=== PATIENT | male | born 1950 | race Caucasian/White ===

== ENCOUNTER 2016-07-04 22:49 | Inpatient (IN) | payer MEDICARE ==
--- NOTE | ~2016-07-04 | CT4 ---
[facility] A Service of [facility] RADIOLOGY TEXT RESULTS PATIENT: RICKY HSIEH LOCATION: C2A 227-01 : 51 UNIT #: [id number] AGE: [address]: Shamika Pfeiffer MD SEX: M ORDER DR: [id number] [facility] [address] [place], [place] [address] [id number] I MR#: [id number] Acc #: [id number] NAME: RICKY HSIEH : 1950 SEX: M STUDY DATE/TIME: 07/04/2016 22:15 UNIT: C2A ROOM: 227 STUDY DESCRIPTION: CT Abd and Pelv Wo Cont Attending Physician: Shamika Pfeiffer M.D. Ordering Physician: Elder Mandel M.D. Primary Care Physician: No Primary Care Physician MEDICAL IMAGING REPORT This report is preliminary unless electronic signature is present EXAM CT abdomen and pelvis, 07/04. INDICATIONS Abdominal pain and flank pain with hematuria. Dysuria that started today. History of cirrhosis. TECHNIQUE Axial images were obtained through the abdomen and pelvis without contrast. Multiplanar reformats were obtained. This CT exam was performed with one or more of the following radiation dose reduction techniques: automatic exposure control, adjustment of mA and/or kV according to patient size, and iterative reconstruction. COMPARISON Comparison made with 06/12/2013. FINDINGS ABDOMEN: An interval development of a large right pleural effusion and a cludd-aa-xszvzjmf left pleural effusion. There is complete atelectasis of the right lower lobe with partial right middle and left lower lobe atelectasis as well. Liver has a cirrhotic morphology. Spleen is mildly enlarged with a pole to pole length of 13.2 cm. There is a small volume of ascites, which is new. Multiple gallstones are seen within the gallbladder. There is also a small gallstone in the distal common bile duct. Common bile duct measures about 14 mm in size today where it was previously normal. Consider ERCP for followup. There is atherosclerotic disease, but no aortic aneurysm. No renal or ureteral stones are seen and there is no hydronephrosis. There is a stable cyst along the medial border of the right kidney. GI tract evaluation is limited without oral contrast. Mildly distended small bowel loops probably reflect a mild generalized ileus. [facility]. [facility] A Service of [facility] RADIOLOGY TEXT RESULTS PATIENT: RICKY HSIEH LOCATION: A 227-01 : 51 UNIT #: [id number] AGE: [address]: Shamika Pfeiffer MD SEX: M ORDER DR: PELVIS: Urinary bladder is grossly normal. There are no lower ureteral stones. There is a moderate volume of free fluid. Moderate stool volume noted in the rectal vault. Remainder of the GI tract including the appendix is within normal limits. There is degenerative disease in the lumbar spine. IMPRESSION 1. New large right pleural effusion with a nvbnr-lr-lojqmlfj left pleural effusion. There is complete right lower lobe atelectasis with partial atelectasis of the right middle and left lower lobes. 2. Abmmt-sn-uwojzpix volume of ascites in the abdomen and pelvis, which is also new. 3. Cirrhosis and portal hypertension with mild splenomegaly. 4. Gallstones in the gallbladder. Additionally, there is a small gallstone in the distal common bile duct with dilatation of the common bile duct to about 14 mm. This is a new finding. Consider ERCP for followup. 5. Ileus pattern in the small bowel. No definite bowel obstruction. The appendix is normal. 6. No renal or ureteral stones. No hydronephrosis. Dictated by... Mat Isaac Jr., M.D. THIS IS AN ELECTRONICALLY VERIFIED REPORT Mat Isaac Jr., M.D. at 07/05/2016 4:23 PM CHRISTY/denice TD: 07/05/2016 12:19 JOB #: [id number] MEDICAL IMAGING REPORT Page 1 of 1 COPY
--- NOTE | ~2016-07-04 | CO ---
Unit #: [id number] #: [id number] Patient: RICKY HSIEH [id number] [address] [address] [id number] I MR#: [id number] NAME: RICKY HSIEH ROOM: 227 Age: 65 Sex: M Admission Date: 07/05/2016 : 1950 Attending Physician: Shamika Pfeiffer M.D. CONSULTATION REPORT REASON FOR CONSULTATION Abdominal pain and common bile duct stones. HISTORY OF PRESENTING ILLNESS The patient states he was in his usual state health until 4 days ago where he began to experience abdominal pain, radiating to side with associated dark urine, nausea, and vomiting. He does have chronic shortness of breath. However states it has been worse lately. Workup in the ER showed a CT scan with known cirrhosis, portal hypertension, moderate ascites, gallstones, as well as a small stone in the distal common bile duct with dilation of the common bile duct as well as a right large pleural effusion. PAST MEDICAL HISTORY Alcohol-induced cirrhosis, COPD, previous CVA with some left-sided weakness, coronary artery disease. ALLERGIES None known. HOME MEDICATIONS Inhaled bronchodilators, spironolactone, Coreg, Lasix. FAMILY HISTORY Reviewed and noncontributory. SOCIAL HISTORY The patient lives with his grandson. He was drinking a case of beer daily until about 3 to 4 days ago where he stopped drinking because he was not feeling well. He also smokes about a pack of cigarettes a day and stopped smoking at the same time. REVIEW OF SYSTEMS A complete 10-point review of systems was completed and negative except as mentioned in the HPI. PHYSICAL EXAMINATION GENERAL: The patient is a 65-year-old male, in no acute distress. VITAL SIGNS: Temperature is 97.8, pulse is 78, respirations 16, blood pressure is 98/54. HEENT: PERRLA. NECK: Supple. CARDIAC: S1, S2. LUNGS: Clear. Unit #: [id number] #: [id number] Patient: RICKY HSIEH ABDOMEN: Soft, rounded, mild right upper quadrant epigastric tenderness. NEUROLOGIC: The patient is alert and awake. DIAGNOSTIC STUDIES IMAGING STUDIES: Again a CT of abdomen and pelvis was completed showing a large right pleural effusion as well as cirrhosis and gallstones in the gallbladder as well as a small stone in the distal common bile duct with common bile duct dilation to 14 mm. LABORATORY RESULTS: INR is 1.4. BUN and creatinine are 12 and 1.0, sodium is 133, bilirubin total is 3.9, AST and ALT are 49 and 19 respectively, alkaline phosphatase is 170. Lipase is 110. White count is 9.8, hemoglobin is 12.0, hematocrit 35.7, and platelets are 145. ASSESSMENT AND PLAN 1. Obstructive jaundice with small stone in the common bile duct. We will plan an endoscopic retrograde cholangiopancreatography in the morning as the patient is medically stable and okay with primary team. We will begin Unasyn for broad-spectrum antibiotic coverage. Continue adequate supportive care for now. 2. Alcohol-induced cirrhosis with ascites. We will order a large volume paracentesis and send fluids for cell count and order albumin. Continue diuretics for now. 3. Alcohol abuse. 4. Chronic obstructive pulmonary disease. 5. Large right pleural effusion. Thoracentesis has already been ordered. Thank you for this interesting consult. We will continue to follow along. Dictated by... Ngozi BeckerPAnny. for Darryl Belle/antoine TD: 07/06/2016 03:06 JOB #: [id number] CONSULTATION REPORT Page 1 of 1 X X CONSULTATION REPORT
--- NOTE | ~2016-07-04 | CO ---
Unit #: [id number] #: [id number] Patient: RICKY HSIEH [id number] [address] [address] [id number] I MR#: [id number] NAME: RICKY HSIEH ROOM: 227 Age: 65 Sex: M Admission Date: 07/05/2016 : 1950 Attending Physician: Shamika Pfeiffer M.D. Primary Care Physician: No Primary Care Physician CONSULTATION REPORT REASON FOR CONSULTATION COPD, pleural effusion. CHIEF COMPLAINT 65-year-old male with a past medical history of alcoholic cirrhosis, COPD, presented with a complaint of abdominal pain and also has been complaining of cough, shortness of breath, increasing sputum production for the last few days, admitted with complaint of common bile duct stone with jaundice. I am seeing the patient at the bedside. He has a large right sided lesion. He has been complaining of increasing shortness of breath. Denies any nausea, vomiting, diarrhea, on 3 L oxygen. REVIEW OF SYSTEMS Positive for pallor. No edema, no cyanosis, no jaundice. PHYSICAL EXAMINATION VITAL SIGNS: Temperature 98, pulse 87, respirations 12, blood pressure 130/70. NEUROLOGICAL: Awake, alert, oriented. No neuro deficit. HEENT: PERRLA. NECK: Supple. No JVD. CHEST: Bilateral air entry, bilateral mild rhonchi. GI: Nontender, soft. Bowel sounds positive. EXTREMITIES: No edema. SKIN: No rashes, no ulcers. LYMPHATIC: No lymphadenopathy. DIAGNOSTIC STUDIES Labs and imaging have been reviewed. PAST MEDICAL HISTORY Significant for: 1. Alcoholic cirrhosis. 2. COPD. 3. Coronary artery disease. 4. Skin cancer. ALLERGIES No known drug allergies. HOME MEDICATIONS 1. Inhaled bronchodilators. 2. Spironolactone. 3. Coreg. Unit #: [id number] #: [id number] Patient: RICKY HSIEH 4. Lasix. 5. PreserVision. FAMILY HISTORY Negative for liver disease. SOCIAL HISTORY One pack smoker. Drinks regularly. ASSESSMENT AND PLAN 1. Chronic obstructive pulmonary disease with exacerbation of right sided pleural effusion. 2. Bile duct stone. 3. Coronary artery disease. Plan is to do a thoracentesis. Continue IV fluids. Continue IV Zosyn. Add on IV steroids after the (1) . We will continue to monitor the patient. Thank you very much for your kind consideration to involve us in taking care of this patient. Dictated by... Darryl Potts TD: 07/06/2016 06:41 JOB #: [id number] CONSULTATION REPORT Page 1 of 1 X Justin Lozano MD CONSULTATION REPORT
--- NOTE | ~2016-07-04 | HP ---
Unit #: [id number] #: [id number] Patient: RICKY HSIEH [id number] [address] [address] [id number] I MR#: [id number] NAME: RICKY HSIEH ROOM: 227 Age: 65 Sex: M Admission Date: 07/05/2016 : 1950 Attending Physician: Priyanka Mix M.D. Primary Care Physician: No Primary Care Physician HISTORY AND PHYSICAL CHIEF COMPLAINT Abdominal pain with common bile duct stone. HISTORY This 65-year-old male with alcohol induced cirrhosis, COPD, is admitted for abdominal pain. The patient was in his usual state of health until four days ago when he began to experience mid abdominal pain radiating to his sides, now associated with dark urine, nausea, vomiting and chills. Notes abdominal bloating. He has chronic shortness of breath but this is worse when he lays on his left side. He presents to this emergency department where he is jaundice. CT scan performed shows his known cirrhosis with portal hypertension, along with small to moderate ascites, gallstones, and small gallstone in the distal common bile duct with dilatation of the common bile duct. Also noted is a large right pleural effusion. In the ER he was given morphine and Zofran and referred for admission. He states that he last drank alcohol three days ago, is not undergoing withdrawal. PAST MEDICAL HISTORY 1. Alcohol induced cirrhosis. 2. COPD. 3. Previous CVA and TIAs with some left-sided weakness. 4. CAD with reported previous [place]. 5. Skin cancer removed. ALLERGIES No known drug allergies. HOME MEDICATIONS Inhaled bronchodilators; spironolactone 50 mg daily; Coreg 3.125 mg daily; Lasix 20 mg daily, PreserVision daily. FAMILY HISTORY Negative for liver disease. SOCIAL HISTORY The patient lives with his grandson. He was drinking intermittently 15-20 beers a day until three to four days ago when he stopped drinking. Was smoking 1/2 pack per day of tobacco, stopped smoking last week. REVIEW OF SYSTEMS Notable for abdominal pain, dark urine, nausea, vomiting, chills, cirrhosis, alcohol abuse, tobacco abuse, COPD, chronic shortness of breath Unit #: [id number] #: [id number] Patient: RICKY HSIEH worse when lying on his left side, abdominal bloating, CVA, TIA, CAD, skin cancer and some cancer from the left shoulder removed. All other systems were reviewed and are negative. PHYSICAL EXAMINATION GENERAL: 65-year-old male currently in no acute distress. VITAL SIGNS: Temperature 98.5, pulse 81, respirations 26, blood pressure 116/69, O2 saturation is 95% on room air. HEENT: Eyes - PERRLA. Extraocular muscles are intact. Pharynx is benign. NECK: Supple without adenopathy or thyromegaly. CHEST: Reveals diminished breath sounds on the right. CARDIAC: Normal S1 and S2 without S3, S4 or murmur. ABDOMEN: Bowel sounds are somewhat hyperactive. Mild hepatosplenomegaly on exam with tenderness mainly in the epigastric region and right upper quadrant. No rebound or guarding. EXTREMITIES: With mild edema. NEUROLOGIC: Patient is awake, alert, and oriented. Cranial nerves are intact. Equal strength throughout. DIAGNOSTIC STUDIES ADMISSION LABS: Hematocrit is 35.3, normal white count and platelet count, MCV is 104. SMA 12 - glucose 116, sodium 132, potassium 3.4, calcium 8, albumin 1.9, bilirubin 3.3, AST is 52, alk phos 184, lipase 110. Urinalysis - trace leukocyte esterase without significant white or red cells. IMAGING STUDIES: CT scan shows large right pleural effusion, small left pleural effusion, small to moderate ascites, cirrhosis with portal hypertension and mild splenomegaly. Gallstones noted. Small gallstone in the distal common bile duct with dilation of the common bile duct. Ileus. ASSESSMENT 1. Common bile duct stone with jaundice. 2. Cirrhosis with portal hypertension, secondary to previous alcohol abuse. 3. Large right pleural effusion likely on the basis of cirrhosis. 4. COPD. 5. CAD. 6. Prior CVAs. PLANS 1. IV fluids, Zosyn, consult GI. Will also check a hepatitis profile in the morning. [facility] to also see given gallstones. 2. Patient will need right thoracentesis with analysis of fluid after his likely ERCP. 3. Vitamins. 4. SCDs and H2 blockers. 5. Old records. Dictated by Darryl Bernard/heath TD: 07/05/2016 05:37 Unit #: [id number] #: [id number] Patient: WHITE,RICKY JOB #: [id number] CC: Dr. Rucker HISTORY AND PHYSICAL Page 1 of 1 X Priyanka Mix MD X HISTORY AND PHYSICAL
--- NOTE | ~2016-07-04 | XA170 ---
[facility] A Service [facility] RADIOLOGY TEXT RESULTS PATIENT: RICKY HSIEH LOCATION: [facility] : 51 UNIT #: [id number] AGE: [address]: Shamika Pfeiffer MD SEX: M ORDER DR: [id number] [address] [place], [place] [address] [id number] I MR#: [id number] Acc #: [id number] NAME: RICKY HSIEH : 1950 SEX: M STUDY DATE/TIME: 07/05/2016 9:04 UNIT: A ROOM: [facility] STUDY DESCRIPTION: XA Paracentesis W Image Attending Physician: Shamika Pfeiffer M.D. Ordering Physician: Dwight Lyons M.D. Primary Care Physician: Primary Care Physician No MEDICAL IMAGING REPORT This report is preliminary unless electronic signature is present EXAM Attempted paracentesis INDICATION 65-year-old male with ascites. TECHNIQUE Risks, benefits and alternatives of the procedure were discussed with the patient. Informed consent was obtained. In the procedure room, a time-out was performed confirming correct patient and procedure. All elements of maximum sterile barrier technique utilized according to guidelines appropriate for the procedure. FINDINGS Ultrasound demonstrated a scant amount of fluid in the right lower quadrant. I did attempt to get a sample but I was unable to obtain a sample. IMPRESSION Attempted paracentesis but I was unable to get a sample due to a scant amount of fluid. Dictated by... Gilbert Figueroa M.D. THIS IS AN ELECTRONICALLY VERIFIED REPORT Gilbert Figueroa M.D. at 07/06/2016 11:32 AM ANA LILIA/saturnino TD: 07/06/2016 07:27 JOB #: [id number] [facility] A [facility] RADIOLOGY TEXT RESULTS PATIENT: RICKY HSIEH LOCATION: [facility] : 51 UNIT #: [id number] AGE: [address]: Shamika Pfeiffer MD SEX: M ORDER DR: MEDICAL IMAGING REPORT Page 1 of 1 COPY
--- NOTE | ~2016-07-04 | CO ---
Unit #: [id number] #: [id number] Patient: RICKY HSIEH [id number] [address] [address] [id number] I MR#: [id number] NAME: RICKY HSIEH ROOM: 227 Age: 65 Sex: M Admission Date: 07/05/2016 : 1950 Attending Physician: Shamika Pfeiffer M.D. Consultation Date: 07/05/2016 CONSULTATION REPORT HISTORY OF PRESENT ILLNESS A 65-year-old gentleman with a history of alcohol-induced cirrhosis and portal hypertension, who presents with nausea, vomiting, abdominal distention, and shortness of air. In the emergency room, a CT scan was obtained, it was consistent with obstructive jaundice from a common bile duct stone with associated ascites and a large right pleural effusion. The patient has been admitted and GI Medicine has been consulted for ERCP. PAST MEDICAL HISTORY Alcohol-induced cirrhosis with resultant portal hypertension, COPD, history of stroke, TIAs, coronary artery disease with a previous [place], previous skin cancer removal. ALLERGIES No allergies to medication. MEDICATIONS Include spironolactone, Coreg, Lasix, PreserVision, and he reportedly had some inhalers. FAMILY HISTORY He is unaware of any chronic inherited diseases. SOCIAL HISTORY Lives with the family. He continues to drink and the last time he drank was about 3 days ago. He is a smoker. Denies recreational drugs. REVIEW OF SYSTEMS Complains of nausea and vomiting, but no hematemesis, hematochezia, or melena. No fever, but he has complained of chills. PHYSICAL EXAMINATION VITAL SIGNS: Temperature is 97.9, pulse 73, respirations 20, blood pressure 121/60. GENERAL: He is awake, alert. He is oriented, but has some slowness to his responses. HEENT: Scleral icterus. CARDIAC: Regular rhythm. LUNGS: Decreased breath sounds on the right, but no wheezing. ABDOMEN: Distended and soft. He guards throughout. There is no localized tenderness and no rebound. I cannot appreciate a mass. EXTREMITIES: No edema. NEUROLOGIC: He is grossly intact. Unit #: [id number] #: [id number] Patient: RICKY HSIEH DIAGNOSTIC STUDIES LABORATORY RESULTS: His comprehensive metabolic panel, his potassium is 3.4, his albumin is 1.9, his total bilirubin is 3.3. Lipase is 110. White count 9900, hemoglobin 11.9, platelets 143,000. IMAGING STUDIES: CT scan as discussed. ASSESSMENT AND PLAN 1. Obstructive jaundice from a common bile duct stone. The patient will need endoscopic retrograde cholangiopancreatography with stone removal and stent placement. GI Medicine has already been consulted. 2. Large right pleural effusion and shortness of breath. We will order a thoracentesis with Interventional Radiology and ask Pulmonary Medicine to follow up the patient in case he needs to go to Surgery. 3. History of myocardial infarction, so EKG has been ordered. 4. Portal hypertension with cirrhosis and ascites. At this time, I discussed with the patient him undergoing endoscopic retrograde cholangiopancreatography to clear his duct and we will evaluate him further to see if he is a surgical candidate. 5. Alcohol withdrawal protocol has been ordered. 6. Potassium replacement has been ordered. 7. Thoracentesis will be ordered to improve his shortness of air. Pulmonary Medicine has been consulted. Dictated by... Mat Cramer M.D. DELFINA/antoine TD: 07/05/2016 07:14 JOB #: [id number] CONSULTATION REPORT Page 1 of 1 X Mat Cramer MD CONSULTATION REPORT
--- NOTE | ~2016-07-04 | XA203 ---
[facility] A Service of [facility] RADIOLOGY TEXT RESULTS PATIENT: RICKY HSIEH LOCATION: A 227-01 : [birth year] UNIT #: [id number] AGE: [address]: Shamika Pfeiffer MD SEX: M ORDER DR: [id number] [place] [address] [facility]. [place], [place] [address] [id number] MR#: [id number] Acc #: [id number] NAME: RICKY HSIEH : 1950 SEX: M STUDY DATE/TIME: 07/05/2016 9:04 UNIT: A ROOM: [facility] STUDY DESCRIPTION: XA Thoracentesis Attending Physician: Shamika Pfeiffer M.D. Ordering Physician: Mat Cramer M.D. Primary Care Physician: Primary Care Physician No MEDICAL IMAGING REPORT This report is preliminary unless electronic signature is present EXAM Ultrasound-guided right thoracentesis. INDICATIONS 65-year male with right pleural effusion. The risks, benefits and alternatives of the procedure were discussed with the patient and informed consent was obtained. In the procedure room a timeout was performed confirming correct patient and procedure. All elements of maximum sterile barrier technique utilized according to guidelines appropriate for the procedure. TECHNIQUE/FINDINGS Ultrasound of the right posterior hemithorax was performed demonstrating a large right pleural effusion. The overlying skin was prepped and draped in usual sterile fashion. 1% lidocaine utilized to anesthetize the skin and underlying subcutaneous tissues. Next under ultrasound guidance 5-Portuguese Yueh catheter inserted into the pleural space on the right and 1300 mL of fluid was removed and sample was sent to the lab. The needle was removed and a sterile dressing was applied. No immediate complications. IMPRESSION Successful ultrasound-guided right thoracentesis. Dictated by... Gilbert Figueroa M.D. THIS IS AN ELECTRONICALLY VERIFIED REPORT Gilbert Figueroa M.D. at 07/06/2016 11:32 AM Gene TD: 07/06/2016 07:26 JOB #: [id number] [facility] A Service of [facility] RADIOLOGY TEXT RESULTS PATIENT: RICKY HSIEH LOCATION: [facility] 227-01 : [birth year] UNIT #: [id number] AGE: [address]: Shamika Pfeiffer MD SEX: M ORDER DR: MEDICAL IMAGING REPORT Page 1 of 1 COPY
--- NOTE | ~2016-07-04 | OR ---
Unit #: [id number] #: [id number] Patient: RICKY HSIEH [id number] [address] [place], [place] [address] [id number] Sumi MR#: [id number] NAME: RICKY HSIEH ROOM: 227 Date of Procedure: 07/06/2016 Admission Date: 07/05/2016 Surgeon: Dwight Lyons M.D. : 1950 Attending Physician: Shamika Pfeiffer M.D. OPERATIVE REPORT PROCEDURE PERFORMED Esophagogastroduodenoscopy to descending duodenum, endoscopic retrograde cholangiopancreatography aborted. INDICATIONS FOR PROCEDURE The patient with a CT scan showing dilated duct and possible common bile duct stone. He also has a history of liver cirrhosis. LFTs seems to be worsening secondary to obstructive element. MEDICATIONS Monitored anesthesia. POSTOPERATIVE FINDINGS 1. EGD exam shows evidence of mild esophagitis along with hiatal hernia and early esophageal stricture. 2. Diffuse gastropathy. 3. Normal duodenum and distal duodenum. 4. ERCP was attempted. Cannulation was very difficult as the ampulla was behind duodenal fold. After repeated attempt, I was not able to get into the duct. PLAN Continue with his current treatment including supportive treatment and broad spectrum antibiotics. We will however repeat attempted ERCP by Dr. Samuel Arnold. DESCRIPTION OF PROCEDURE The patient was explained of the procedure, risks, and benefits along with the risks and benefits of anesthesia. He was brought to the endoscopy room. Propofol anesthesia was given and laid in the prone position. EGD was done first. Scope was passed down the mouth into the esophagus, stomach, duodenum, and distal duodenum. Findings as described. No biopsies were taken. Gently, the scope was pulled out. At this point, we got the ERCP side-viewing scope, which was passed down the mouth into the esophagus, stomach, and duodenum. Ampulla was visualized. It was very difficult to visualize it because it was right behind the big folds. After several attempts of cannulation, I elected to abort the procedure. Cannulation was unsuccessful. Gently, the scope was pulled out. Stomach was decompressed. He tolerated it well. No major complications were seen. Dictated by... Unit #: [id number] #: [id number] Patient: RICKY HSIEH Darryl Belle/antoine TD: 07/06/2016 23:10 JOB #: [id number] OPERATIVE REPORT Page 1 of 1 X Dwight Lyons MD X PROCEDURE OPERATIVE NOTE
--- NOTE | ~2016-07-04 | EKG ---
PATIENT: RICKY HSIEH UNIT #: [id number] Ventricular Rate: 75 BPM Atrial Rate: 75 BPM P-R Interval: 132 ms QRS Duration: 96 ms Q-T Interval: 450 ms QTC Calculation(Bezet): 502 ms P Cantrall: 29 degrees Calculated R Cantrall: 29 degrees Calculated T Cantrall: 56 degrees Diagnosis Line: Normal sinus rhythm Diagnosis Line: Prolonged QT Diagnosis Line: Abnormal ECG Diagnosis Line: No previous ECGs available Diagnosis Line: Confirmed by MARYLOU CHRISETNSEN MD ([id number]) on Diagnosis Line: 07/05/2016 2:27:08 PM INTERPRETING MD: FERMIN ARREAGA
--- NOTE | ~2016-07-04 | DS ---
Unit #: [id number] #: [id number] Patient: RICKY HSIEH [id number] [address] [place], [place] [address] [id number] MR#: [id number] NAME: RICKY HSIEH ROOM: 227 Age: 65 Sex: M Admission Date: 07/05/2016 : 1950 Discharge Date: 07/07/2016 Attending Physician: Shamika Pfeiffer M.D. Primary Care Physician: Primary Care Physician No DISCHARGE SUMMARY DISCHARGE DIAGNOSES 1. Obstructive jaundice. 2. Acute pancreatitis due to choledocholithiasis. 3. Cirrhosis with portal hypertension and ascites. 4. Chronic obstructive pulmonary disease. 5. History of coronary artery disease. 6. Prior cerebrovascular accident. PROCEDURES 1. Thoracentesis done by Interventional Radiology on 07/05/2016 and had 1300 mL of fluid removed. 2. Paracentesis attempted by Interventional Radiology on 07/05/2016 with no fluid removed. 3. ERCP was done by Dr. Lyons of gastroenterology which was unsuccessful, failed cannulation. CONSULTANTS 1. [facility]. 2. Dr. Lyons of gastroenterology. 3. Dr. Lozano of pulmonary. IMAGING 1. CT abdomen and pelvis on 07/04/2016. Impression: 1) New large right pleural effusion with small to moderate left pleural effusion. There is complete right lower lobe atelectasis with partial atelectasis at the right middle and left lower lobe. 2) Small to moderate volume of ascites in the abdomen and pelvis which is also new. 3) Cirrhosis and portal hypertension with mild splenomegaly. 4) Gallstones in the gallbladder. Additionally, there is a small gallstone in the distal common bile duct with dilation of the common bile duct to about 14 mm. This is a new finding. Consider ERCP to follow. Ileus pattern in the small bowel, no definite bowel obstruction. Appendix is normal. No renal or ureteral stents. No hydronephrosis. 2. Thoracentesis was done on 07/05/2016. Successful ultrasound-guided thoracentesis with 1300 mL of fluid removed. 3. Paracentesis. Attempted paracentesis but was unable to get a sample due to a scant amount of fluid. 4. Chest x-ray on 07/05/2016. Impression: Low lung volume film with significant reduction in right pleural effusion as compared to CT abdomen on 07/04/2016. There is some residual blunting of the right costophrenic sulcus. No pneumothorax. LABORATORY Today's labs include a BMP with glucose of 122, BUN 9, creatinine 0.9, Unit #: [id number] #: [id number] Patient: WHITE,RICKY sodium 135, potassium 4.2, chloride 108, CO2 is 24, calcium 7.9, phosphorus 3.0, magnesium 1.8, total protein 6.0, albumin 1.7, total bilirubin is 3.7, AST 48, ALT 19, alkaline phosphatase was 124, this is a reduction from 184 on admission. Amylase was 54, lipase 43 reduced from 110 on admission. Patient's PT/INR was 15.0 for PT and INR of 1.4. CBC with WBC of 7.4, RBC of 2.92, hemoglobin 10.3, hematocrit 31.0, MCV was 106.1, MCH 35.2, MCHC 33.2, RDW 15.1, platelets 119, MPV 7.4. Microbiology. Pleural effusion with no growth after 48 hours. Other labs that are still pending include an acute hepatitis panel is pending as it is being sent out. Urinalysis was unremarkable. There was some trace leukocyte esterase but no wbc's, no bacteria was seen. Thoracentesis. Body fluids appearance was turbid with less than 10,000 RBCs, 15% neutrophils, 64% lymphocytes, monocytes 21%, no eosinophils. But, again, culture had no growth. It did have 1.7 protein, LDH 49, amylase 114. HOSPITAL COURSE The patient is a 65-year-old male with past medical history of lifelong history of alcoholism with cirrhosis, portal hypertension, COPD, who presented to [facility] due to abdominal pain. The patient was in his usual state of health until four days prior to admission when he started to experience mid abdominal pain radiating to his sides as well as associated dark urine, nausea, vomiting and chills. The patient does have chronic shortness of breath but he thinks it has been worsened with lying on his left side. He presented to the emergency department where he was found to have marked jaundice. CT was done with his known history of cirrhosis which revealed portal hypertension along with small to moderate amount of ascites, gallstones and gallstones in the distal common bile duct with dilation of the common bile duct; and enlarged right pleural effusion. The patient was admitted to [facility]. Admits to drinking alcohol three days prior to admission. He was treated for obstructive jaundice due to choledocholithiasis. He was seen in consultation with [facility] as well as Dr. Lyons with gastroenterology and Dr. Lozano with pulmonary. The patient did have a right thoracentesis as well as an attempt at paracentesis by Interventional Radiology. A successful 1300 mL of fluid was removed from his right lung and currently is stable in terms of his respiratory status. He is on oxygen saturating at 93% on room air. We have been treating patient with Zosyn which I do not think patient needs any at this time for a presumed SBP, but as he has no fever, no elevated white count, and very small amount of ascites that was not drainable by Interventional Radiology, I believe that he will not need any further antibiotics at this time. Dr. Chavez from gastroenterology had an attempt at ERCP yesterday, on 07/06/2016, but had failed cannulation. He had arranged with Dr. Cardenas and patient has a planned ERCP at 7:30 on Monday at [facility] outpatient endoscopy unit. We will make him n.p.o. after midnight tonight in planning for that. This is with Dr. iSlvia Cardenas. [facility] felt that patient's portal hypertension and his severe cirrhosis, that an attempt at cholecystectomy is best to be done by the liver transplant team at [facility] at this time since patient will be discharged to have his ERCP with Dr. Cardenas at [facility]. We will also be transferring him over to [facility] there so that he can undergo a cholecystectomy by the transplant team Unit #: [id number] #: [id number] Patient: RICKY HSIEH there, Dr. Celis has accepted this transfer. We will be transferring him in stable condition under the hospitalist care there. DISCHARGE MEDICATIONS Include: 1. Coreg 3.125 mg p.o. daily. 2. Lasix 20 mg p.o. daily. 3. Multivitamin one tablet p.o. daily. 4. Spironolactone 50 mg p.o. daily. 5. Thiamine 100 mg p.o. daily. 6. Vitamin B12 1000 mcg p.o. daily. 7. Would also recommend that patient continue on the CIWA protocol for his severe lifelong alcoholism. The patient has not had any alcohol withdrawal episodes during his hospitalization here. This discharge did take 40 minutes to conclude patient education to patient as well as to transfer care. Dictated by... Garcia Berger PA-C for Darryl Shah/lindsey TD: 07/07/2016 15:24 JOB #: [id number] DISCHARGE SUMMARY Page 1 of 1 X X DISCHARGE SUMMARY
--- NOTE | ~2016-07-04 | CR71 ---
[facility] A Service of [facility] RADIOLOGY TEXT RESULTS PATIENT: RICKY HSIEH LOCATION: A 227-01 : 51 UNIT #: [id number] AGE: [address]: Shamika Pfeiffer MD SEX: M ORDER DR: [id number] [facility] [address] [place], [place] [address] [id number] MR#: [id number] Acc #: [id number] NAME: RICKY HSIEH : 1950 SEX: M STUDY DATE/TIME: 07/05/2016 09:40 UNIT: A ROOM: [facility] STUDY DESCRIPTION: CR Chest Single View Attending Physician: Shamika Pfeiffer M.D. Ordering Physician: Felicita Figueroa M.D. Primary Care Physician: No Primary Care Physician MEDICAL IMAGING REPORT This report is preliminary unless electronic signature is present EXAM Chest, portable, 07/05/2016, 0940 hours. CLINICAL HISTORY Patient complains of cough today post thoracentesis. COMPARISON Chest film, 07/10/2013; CT abdomen and pelvis, 07/04/2016. FINDINGS Portable upright chest demonstrates mild cardiomegaly with tortuous aorta. The lung volumes are low with perihilar vascular crowding. There is a significant reduction in the right pleural effusion since the CT of 07/04/2016 with some minimal blunting of the right costophrenic sulcus remaining. There is no pneumothorax. IMPRESSION Low lung volume film with significant reduction in right pleural effusion as compared to CT abdomen, 07/04/2016. There is some residual blunting of the right costophrenic sulcus. No pneumothorax. Dictated by... Renita Barker M.D. THIS IS AN ELECTRONICALLY VERIFIED REPORT Renita Barker M.D. at 07/06/2016 9:38 AM VEE/denice TD: 07/05/2016 14:29 JOB #: [id number] MEDICAL IMAGING REPORT Page 1 of 1 COPY
[2016-07-04 21:37] LABS: BASOPHIL# 0.1 X10e3 (0-0.3); BASOPHIL% 0.9 % (0-2.5); EOSINOPHIL# 0.6 X10e3 (0-0.7); EOSINOPHIL% 6.5 % (0.0-7.0); HEMATOCRIT 35.3 % (38.0-50.0); HEMOGLOBIN 11.9 gm/dL (13.0-16.0); LYMPHOCYTE# 1.5 X10e3 (1.0-3.5); LYMPHOCYTE% 15.1 % (17.0-45.0); MEAN CELL VOLUME 103.7 FL (83-96); MEAN CORPUSCULAR HEMOGLOBIN 34.9 PG (28-34); MEAN CORPUSCULAR HGB CONC 33.6 g/dL (30-36); MEAN PLATELET VOLUME 7.2 FL (6.5-11.5); MONOCYTE# 1.9 X10e3 (0-1.0); MONOCYTE% 18.9 % (3.0-12.0); NEUTROPHIL# 5.8 X10e3 (1.5-7.1); NEUTROPHIL% 58.6 % (40-75); PLATELET COUNT 143 X10e3 (140-420); RED CELL DISTRIBUTION WIDTH 15.3 % (11.0-15.5); WHITE BLOOD COUNT 9.9 X10e3 (4.0-10.5)
[2016-07-04 21:40] LABS: DIFF IND NO
[2016-07-04 22:02] LABS: ALBUMIN SERUM 1.9 g/dL (3.5-5.0); ALKALINE PHOSPHATASE 184 U/L (32-92); ALT (SGPT) 21 U/L (10-40); AST (SGOT) 52 U/L (10-42); BILIRUBIN, DIRECT 1.4 mg/dL (0.0-0.2); BILIRUBIN,INDIRECT 1.9 mg/dL (0.0-0.9); BILIRUBIN,TOTAL 3.3 mg/dL (0.2-2.0); BLOOD UREA NITROGEN 11 mg/dL (9-23); BUN/CREATININE RATIO 15.71; CARBON DIOXIDE 25 mmol/L (22-31); CHLORIDE 100 mmol/L (100-111); CREATININE SERUM 0.7 mg/dL (0.6-1.4); GLOM FILT RATE Estimated ABOVE60 mL/min (>60); GLUCOSE FASTING 116 mg/dL (70-110); LIPASE 110 U/L (22-51); POTASSIUM 3.4 mmol/L (3.5-5.1); PROTEIN TOTAL SERUM 6.9 g/dL (6.0-8.3); SODIUM 132 mmol/L (135-145)
[2016-07-04 22:28] LABS: URINE SOURCE CLEAN CATCH
[2016-07-04 22:43] LABS: URINE APPEARANCE CLEAR; URINE BLOOD NEG (NEG); URINE COLOR DK YELLOW; URINE GLUCOSE NEG (NEG); URINE KETONE NEG (NEG); URINE LEUKOCYTE ESTERASE TRACE (NEG); URINE NITRATE NEG (NEG); URINE PH 6.5 (5-8); URINE PROTEIN NEG (NEG)
[2016-07-04 22:47] LABS: U HYALINE CASTS AUWI 0-2 /[LPF]; URINE BACTERIA AUWI NEG (NEGATIVE); URINE SQUAMOUS EPITHELIAL CELL NONE SEEN /[HPF]; UWBCS1 AUWI 0-2 (0-5)
[2016-07-04 22:52] LABS: CULTURE INDICATED? NO; URINE BILIRUBIN NEG (NEG)
[2016-07-04] MEDS ORDERED: SPIRONOLACTONE50 MG PO (23:40)
[2016-07-04] MEDS ORDERED: COREG3.125 MG PO (23:41)
[2016-07-04] MEDS ORDERED: PRESERVISION1 EA PO (23:41)
[2016-07-04] MEDS ORDERED: LASIX20 MG PO (23:41)
[2016-07-05 08:02] LABS: BASOPHIL# 0.1 X10e3 (0-0.3); BASOPHIL% 1.3 % (0-2.5); EOSINOPHIL# 0.8 X10e3 (0-0.7); EOSINOPHIL% 7.8 % (0.0-7.0); HEMATOCRIT 35.7 % (38.0-50.0); LYMPHOCYTE# 1.6 X10e3 (1.0-3.5); LYMPHOCYTE% 16.3 % (17.0-45.0); MEAN CELL VOLUME 104.7 FL (83-96); MEAN CORPUSCULAR HEMOGLOBIN 35.1 PG (28-34); MEAN CORPUSCULAR HGB CONC 33.5 g/dL (30-36); MEAN PLATELET VOLUME 6.9 FL (6.5-11.5); MONOCYTE# 1.7 X10e3 (0-1.0); NEUTROPHIL# 5.7 X10e3 (1.5-7.1); NEUTROPHIL% 57.6 % (40-75); PLATELET COUNT 145 X10e3 (140-420); RED BLOOD COUNT 3.41 X10e (3.90-5.60); RED CELL DISTRIBUTION WIDTH 15.3 % (11.0-15.5); WHITE BLOOD COUNT 9.8 X10e3 (4.0-10.5)
[2016-07-05 08:03] LABS: DIFF IND YES
[2016-07-05 08:12] LABS: INR 1.4; PARTIAL THROMBOPLASTIN TIME 31.4 SECONDS (23.5-31.3)
[2016-07-05 08:21] LABS: ALBUMIN SERUM 1.9 g/dL (3.5-5.0); ALKALINE PHOSPHATASE 170 U/L (32-92); ALT (SGPT) 19 U/L (10-40); AST (SGOT) 49 U/L (10-42); BILIRUBIN,TOTAL 3.9 mg/dL (0.2-2.0); BLOOD UREA NITROGEN 12 mg/dL (9-23); CALCIUM SERUM 8.1 mg/dL (8.4-10.2); CARBON DIOXIDE 28 mmol/L (22-31); CHLORIDE 99 mmol/L (100-111); GLOM FILT RATE Estimated ABOVE60 mL/min (>60); GLUCOSE FASTING 80 mg/dL (70-110); MAGNESIUM 1.6 mg/dL (1.6-3.0); PROTEIN TOTAL SERUM 6.8 g/dL (6.0-8.3); SODIUM 133 mmol/L (135-145)
[2016-07-05 08:24] LABS: ANISOCYTOSIS SL; PLATELET ESTIMATE NORMAL (NORMAL)
[2016-07-05 10:33] LABS: BF TOTAL NUCLEATED CELL COUNT 331 CMM (0-100); BODY FLUID APPEARANCE TURBID; BODY FLUID RBC <10000 CMM; BODY FLUID SOURCE PLEURAL
[2016-07-05 11:16] LABS: PROTEIN, BODY FLUID 1.7 gm/dL
[2016-07-06 06:44] LABS: HEMATOCRIT 32.9 % (38.0-50.0); HEMOGLOBIN 10.9 gm/dL (13.0-16.0); MEAN CELL VOLUME 106.5 FL (83-96); MEAN CORPUSCULAR HEMOGLOBIN 35.4 PG (28-34); MEAN CORPUSCULAR HGB CONC 33.2 g/dL (30-36); MEAN PLATELET VOLUME 7.2 FL (6.5-11.5); RED BLOOD COUNT 3.09 X10e (3.90-5.60); RED CELL DISTRIBUTION WIDTH 15.4 % (11.0-15.5); WHITE BLOOD COUNT 8.3 X10e3 (4.0-10.5)
[2016-07-06 07:58] LABS: ALBUMIN SERUM 1.7 g/dL (3.5-5.0); ALKALINE PHOSPHATASE 142 U/L (32-92); ALT (SGPT) 19 U/L (10-40); AMYLASE 54 U/L (0-46); AST (SGOT) 52 U/L (10-42); BILIRUBIN,TOTAL 4.5 mg/dL (0.2-2.0); BLOOD UREA NITROGEN 12 mg/dL (9-23); BUN/CREATININE RATIO 13.33; CARBON DIOXIDE 23 mmol/L (22-31); CHLORIDE 106 mmol/L (100-111); CREATININE SERUM 0.9 mg/dL (0.6-1.4); GLOM FILT RATE Estimated ABOVE60 mL/min (>60); GLUCOSE FASTING 137 mg/dL (70-110); LIPASE 52 U/L (22-51); MAGNESIUM 1.9 mg/dL (1.6-3.0); POTASSIUM 4.4 mmol/L (3.5-5.1); PROTEIN TOTAL SERUM 6.2 g/dL (6.0-8.3); SODIUM 132 mmol/L (135-145)
[2016-07-07 06:37] LABS: HEMOGLOBIN 10.3 gm/dL (13.0-16.0); MEAN CELL VOLUME 106.1 FL (83-96); MEAN CORPUSCULAR HEMOGLOBIN 35.2 PG (28-34); MEAN CORPUSCULAR HGB CONC 33.2 g/dL (30-36); MEAN PLATELET VOLUME 7.4 FL (6.5-11.5); RED BLOOD COUNT 2.92 X10e (3.90-5.60); RED CELL DISTRIBUTION WIDTH 15.1 % (11.0-15.5); WHITE BLOOD COUNT 7.4 X10e3 (4.0-10.5)
[2016-07-07 07:07] LABS: ALBUMIN SERUM 1.7 g/dL (3.5-5.0); ALKALINE PHOSPHATASE 124 U/L (32-92); ALT (SGPT) 19 U/L (10-40); AST (SGOT) 48 U/L (10-42); BILIRUBIN,TOTAL 3.7 mg/dL (0.2-2.0); BLOOD UREA NITROGEN 9 mg/dL (9-23); CALCIUM SERUM 7.9 mg/dL (8.4-10.2); CARBON DIOXIDE 24 mmol/L (22-31); CHLORIDE 108 mmol/L (100-111); CREATININE SERUM 0.9 mg/dL (0.6-1.4); GLOM FILT RATE Estimated ABOVE60 mL/min (>60); GLUCOSE FASTING 122 mg/dL (70-110); LIPASE 43 U/L (22-51); MAGNESIUM 1.8 mg/dL (1.6-3.0); POTASSIUM 4.2 mmol/L (3.5-5.1); SODIUM 135 mmol/L (135-145)
[2016-07-07 15:33] LABS: HA AB IGM (HEPPAN) Nonreactive (Nonreactive); HB CORE AB IGM (HEPPAN) Nonreactive (Nonreactive); HB S AG (HEPPAN) Nonreactive (Nonreactive); HEP C AB (HEPPAN) Nonreactive (Nonreactive); HEP C AB SIGNAL TO CUTOFF 0.11 ratio (<1.00)
== END 2016-07-08 02:45 | DRG 444 ==
LOC: CED 22:49 → CEDOF 07-05 01:00 → C2A 07-05 03:28
PROVIDERS: Emergency Medicine; Internal Medicine; Specialist
PROC: 0W993ZZ Drainage of Right Pleural Cavity, Percutaneous Approach (ICD-10-PCS; 2016-07-05)
PROC: 0W9G3ZZ Drainage of Peritoneal Cavity, Percutaneous Approach (ICD-10-PCS; 2016-07-05)
PROC: 0DJ08ZZ Inspection of Upper Intestinal Tract, Via Natural or Artificial Opening Endoscopic (ICD-10-PCS; principal; 2016-07-06 11:45)
PROC: 0FJD8ZZ Inspection of Pancreatic Duct, Via Natural or Artificial Opening Endoscopic (ICD-10-PCS; 2016-07-06 11:45)
DX: K83.1 Obstruction of bile duct (principal); K85.90 Acute pancreatitis without necrosis or infection, unspecified; J90 Pleural effusion, not elsewhere classified; K76.6 Portal hypertension; J98.11 Atelectasis; I25.10 Atherosclerotic heart disease of native coronary artery without angina pectoris; Z86.73 Personal history of transient ischemic attack (TIA), and cerebral infarction without residual deficits; F10.20 Alcohol dependence, uncomplicated; K70.31 Alcoholic cirrhosis of liver with ascites; I25.2 Old myocardial infarction; Z85.828 Personal history of other malignant neoplasm of skin; F17.200 Nicotine dependence, unspecified, uncomplicated; J44.9 Chronic obstructive pulmonary disease, unspecified; K31.9 Disease of stomach and duodenum, unspecified; K44.9 Diaphragmatic hernia without obstruction or gangrene; K22.2 Esophageal obstruction
CPT/HCPCS: 36415; 71010; 74176; 76000; 80048; 80053; 80074; 80076; 81003; 82150; 83615; 83690; 83735; 83986; 84100; 84157; 85025; 85027; 85610; 85730; 87070; 87102; 87116; 87205; 87206; 88108; 88305; 89051; 93005; 94640; 94760; 96374; 96375; 97162; 99285; G8990-GP; G8991-GP; G8992-GP; J1610; J2250; J2270; J2405; J2543; J3411; J3475; J7042